=== PATIENT | male | born 1980 ===

== ENCOUNTER 2024-12-27 06:30 | Day surgery (SDC) | payer BC, SELFPAY | END 2024-12-27 10:12 | disposition home or self-care (01) | LOC: GI 06:30 | PROVIDERS: ATTENDING PHYSICIAN Surgery | DX: Z12.11 Encounter for screening for malignant neoplasm of colon (principal); K64.9 Unspecified hemorrhoids; Q43.8 Other specified congenital malformations of intestine; Z83.719 Family history of colon polyps, unspecified; Z86.0100 Personal history of colon polyps, unspecified | CPT/HCPCS: G0105 ==